=== PATIENT | female | born 1970 | race Caucasian/White ===

== ENCOUNTER 2018-06-26 16:57 | Outpatient (CLI) | payer OTHER | END 2018-06-26 20:24 | disposition home or self-care (01) | LOC: SRD 16:57 | PROVIDERS: ATTEND Internal Medicine | DX: M17.0 Bilateral primary osteoarthritis of knee (principal) ==

== ENCOUNTER 2018-06-29 08:45 | Outpatient (CLI) | payer OTHER ==
[2018-06-29 10:02] LABS: BILIRUBIN,URINE NEGATIVE (NEGATIVE); BLOOD, URINE NEGATIVE (NEGATIVE); CLARITY/URINE CLEAR (CLEAR); COLOR,URINE YELLOW (YELLOW); GLUCOSE,URINE NEGATIVE (NEGATIVE); KETONES,URINE NEGATIVE (NEGATIVE); LEUKOCYTE ESTERASE ,URINE 1+ (NEGATIVE); NITRITE, URINE NEGATIVE (NEGATIVE); PH,URINE 6.5 (5.0-8.0); PROTEIN URINE NEGATIVE (NEGATIVE); UROBILINOGEN,URINE 0.2 (0.2-1.0)
[2018-06-29 10:06] LABS: BASOPHILS # (AUTO) 0.1 K/uL (0.0-0.2); BASOPHILS % (AUTO) 1.6 % (0.0-2.0); EOSINOPHILS # (AUTO) 0.2 K/uL (0.0-0.4); EOSINOPHILS % (AUTO) 3.9 % (0.0-4.0); HEMATOCRIT 41.1 % (36-48); HEMOGLOBIN 13.8 g/dL (12.0-16.0); LYMPHOCYTES # (AUTO) 1.5 K/uL (1.0-5.5); MEAN CORPUSCULAR HEMOGLOBIN 31 pg (27-31); MEAN CORPUSCULAR HGB CONC 34 % (32-36); MEAN CORPUSCULAR VOLUME 91 fL (79.0-98.0); MONOCYTES # (AUTO) 0.3 K/uL (0.0-1.0); MONOCYTES % (AUTO) 7.1 % (1.7-9.3); NEUTROPHILS # (AUTO) 2.6 K/uL (1.8-7.7); NEUTROPHILS % (AUTO) 55.4 % (40.0-70.0); PLATELET COUNT (AUTO) 205 K/uL (130-430); RED BLOOD CELL COUNT(AUTO) 4.51 MIL/uL (4.2-6.2); RED CELL DISTRIBUTION WIDTH 12.1 % (9.0-15.0); WHITE BLOOD COUNT (AUTO) 4.7 K/uL (4.8-10.8)
[2018-06-29 10:33] LABS: ALBUMIN 3.9 g/dL (3.4-4.8); CALCIUM 9.3 mg/dL (8.4-11.0); CREATININE 0.62 mg/dL (0.55-1.30); POTASSIUM 3.7 mmol/L (3.5-5.1); THYROID STIMULATING HORMONE 1.25 uIu/mL (0.34-4.82); TOTAL BILIRUBIN 0.5 mg/dL (0.0-1.0); URIC ACID 2.6 mg/dL (2.4-7.0)
[2018-06-29 10:41] LABS: BACTERIA,URINE RARE /HPF (None Seen); MUCUS,URINE None Seen /LPF (None Seen); RBC,URINE 0-3 /HPF (0-3); WBC,URINE 0-3 /HPF (0-3)
[2018-06-29 11:04] LABS: ERYTHROCYTE SEDIMENTATION RATE 16 MM/HR (0-20)
[2018-06-30 06:07] LABS: HEMOGLOBIN A1C 4.8 % (4.8-5.6)
== END 2018-06-29 19:31 | disposition home or self-care (01) ==
LOC: EDBD → SUS 08:45
PROVIDERS: ATTEND Internal Medicine
DX: R10.9 Unspecified abdominal pain (principal)
CPT/HCPCS: 36415; 76700-TC; 80053; 80061; 81000-TC; 82306; 82607; 83036; 84443-TC; 84550-TC; 85025; 85651-TC

== ENCOUNTER 2018-11-16 08:23 | Outpatient (CLI) | payer OTHER | END 2018-11-16 21:19 | disposition home or self-care (01) | LOC: SRD 08:23 | PROVIDERS: ATTEND Orthopaedic Surgery | DX: M17.12 Unilateral primary osteoarthritis, left knee (principal) ==

== ENCOUNTER 2018-11-29 08:49 | Outpatient (CLI) | payer OTHER | END 2018-11-29 21:12 | disposition home or self-care (01) | LOC: SMA 08:49 | PROVIDERS: ATTEND Internal Medicine | DX: Z12.31 Encounter for screening mammogram for malignant neoplasm of breast (principal) | CPT/HCPCS: 76641; 77067 ==

== ENCOUNTER 2018-12-22 08:45 | Outpatient (CLI) | payer OTHER ==
[2018-12-22 09:26] LABS: BASOPHILS # (AUTO) 0.1 K/uL (0.0-0.2); BASOPHILS % (AUTO) 1.5 % (0.0-2.0); EOSINOPHILS # (AUTO) 0.1 K/uL (0.0-0.4); EOSINOPHILS % (AUTO) 2.8 % (0.0-4.0); HEMATOCRIT 39.6 % (36-48); HEMOGLOBIN 13.6 g/dL (12.0-16.0); LYMPHOCYTES # (AUTO) 1.3 K/uL (1.0-5.5); LYMPHOCYTES % (AUTO) 35.3 % (20.5-51.5); MEAN CORPUSCULAR HEMOGLOBIN 31 pg (27-31); MEAN CORPUSCULAR HGB CONC 35 % (32-36); MEAN CORPUSCULAR VOLUME 89 fL (79.0-98.0); MONOCYTES # (AUTO) 0.3 K/uL (0.0-1.0); MONOCYTES % (AUTO) 8.9 % (1.7-9.3); NEUTROPHILS # (AUTO) 1.9 K/uL (1.8-7.7); PLATELET COUNT (AUTO) 192 K/uL (130-430); RED BLOOD CELL COUNT(AUTO) 4.45 MIL/uL (4.2-6.2); WHITE BLOOD COUNT (AUTO) 3.7 K/uL (4.8-10.8)
[2018-12-22 09:29] LABS: ANION GAP 7 (5-15); CHLORIDE 106 mmol/L (98-107); GLUCOSE 95 mg/dL (70-99); POTASSIUM 4.4 mmol/L (3.5-5.1); SODIUM SERUM 142 mmol/L (136-145); UREA NITROGEN, BLOOD 16 mg/dL (8-21)
[2018-12-22 09:33] LABS: GFR AFRICAN AMERICAN 114 mL/min (>90)
[2018-12-22 09:44] LABS: ALANINE AMINOTRANSFERASE 21 U/L (12-78); ALBUMIN 3.7 g/dL (3.4-4.8); ASPARTATE AMINOTRANSFERASE 14 U/L (10-37); THYROID STIMULATING HORMONE 1.38 uIu/mL (0.36-3.74); TOTAL BILIRUBIN 0.5 mg/dL (0.0-1.0)
[2018-12-22 09:47] LABS: NEUTROPHILS % (AUTO) 51.5 % (40.0-70.0)
[2018-12-22 10:00] LABS: CHOLESTEROL 200 mg/dL (<200); HDL CHOLESTEROL 61 mg/dL (>55); LDL CHOLESTEROL 136 mg/dL (<100); TRIGLYCERIDES 65 mg/dL (30-150)
[2018-12-22 10:01] LABS: C-REACTIVE PROTEIN QUANT < 0.2 mg/dL (0-0.5)
[2018-12-22 10:43] LABS: ERYTHROCYTE SEDIMENTATION RATE 8 MM/HR (0-20)
[2018-12-23 07:03] LABS: HEMOGLOBIN A1C 4.9 % (4.8-5.6)
== END 2018-12-22 20:10 | disposition home or self-care (01) ==
LOC: SMI 08:45
PROVIDERS: ATTEND Internal Medicine
DX: M47.812 Spondylosis without myelopathy or radiculopathy, cervical region (principal); E04.1 Nontoxic single thyroid nodule; M46.02 Spinal enthesopathy, cervical region
CPT/HCPCS: 36415; 72141; 80053; 80061; 82306; 82607; 83036; 83735-TC; 84443-TC; 85025; 85651-TC; 86140

== ENCOUNTER 2019-01-05 08:11 | Outpatient (CLI) | payer OTHER | END 2019-01-05 20:04 | disposition home or self-care (01) | LOC: SUS 08:11 | PROVIDERS: ATTEND Internal Medicine | DX: E04.1 Nontoxic single thyroid nodule (principal) | CPT/HCPCS: 76536-TC ==

== ENCOUNTER 2020-06-06 08:19 | Outpatient (CLI) | payer OTHER ==
[2020-06-06 10:40] LABS: EOSINOPHILS # (AUTO) 0.2 K/uL (0.0-0.4); EOSINOPHILS % (AUTO) 3.3 % (0.0-4.0); HEMATOCRIT 40.6 % (36-48); HEMOGLOBIN 13.6 g/dL (12.0-16.0); LYMPHOCYTES # (AUTO) 1.8 K/uL (1.0-5.5); LYMPHOCYTES % (AUTO) 36.1 % (20.5-51.5); MEAN CORPUSCULAR HEMOGLOBIN 31 pg (27-31); MEAN CORPUSCULAR HGB CONC 34 % (32-36); MEAN CORPUSCULAR VOLUME 91 fL (79.0-98.0); MONOCYTES # (AUTO) 0.3 K/uL (0.0-1.0); MONOCYTES % (AUTO) 6.8 % (1.7-9.3); NEUTROPHILS # (AUTO) 2.7 K/uL (1.8-7.7); NEUTROPHILS % (AUTO) 52.8 % (40.0-70.0); PLATELET COUNT (AUTO) 202 K/uL (130-430); RED BLOOD CELL COUNT(AUTO) 4.46 MIL/uL (4.2-6.2)
[2020-06-06 11:21] LABS: ALBUMIN 4.3 g/dL (3.4-4.8); CALCIUM 9.3 mg/dL (8.4-11.0); CREATININE 0.83 mg/dL (0.55-1.30); FREE T4 (FREE THYROXINE) 0.7 ng/dL (0.6-1.6); POTASSIUM 3.7 mmol/L (3.5-5.1); THYROID STIMULATING HORMONE 1.56 uIu/mL (0.34-4.82); TOTAL BILIRUBIN 0.6 mg/dL (0.0-1.0)
[2020-06-06 11:36] LABS: ERYTHROCYTE SEDIMENTATION RATE 12 MM/HR (0-20)
[2020-06-07 02:06] LABS: HEMOGLOBIN A1C 5.1 % (4.8-5.6)
[2020-06-07 08:06] LABS: THYROID PEROXIDASE (TPO) AB <9 IU/mL (0-34)
== END 2020-06-06 19:46 | disposition home or self-care (01) ==
LOC: SMA 08:19
PROVIDERS: ATTEND Internal Medicine
DX: Z12.31 Encounter for screening mammogram for malignant neoplasm of breast (principal); E04.2 Nontoxic multinodular goiter; N60.02 Solitary cyst of left breast
CPT/HCPCS: 36415; 76536-TC; 76641; 77067; 80053; 80061; 82306; 82607; 83036; 84439; 84443-TC; 85025; 85651-TC; 86376

== ENCOUNTER 2020-11-17 07:02 | Day surgery (SDC) | payer OTHER, SELFPAY ==
[~2020-11-17] VITALS: Ht 167.6 cm; Wt 77.1 kg
[2020-11-17] MEDS ORDERED: SIMETHICONE 40 MG/0.6 ML ML ONE (07:11)
[2020-11-17] MEDS ORDERED: MEPERIDINE 100 MG INJ. 100 MG/ML VIAL ONE (07:12)
[2020-11-17] MEDS: MIDAZOLAM HCL 5 MG/5 ML VIAL ONE ×4 (09:10→09:17)
[2020-11-17 10:17] VITALS: BP_SYST 104
== END 2020-11-17 10:43 | disposition home or self-care (01) ==
LOC: SDS 07:02 → SMU 07:02 → SDS 10:43
PROVIDERS: ATTEND Internal Medicine Gastroenterology
DX: K62.5 Hemorrhage of anus and rectum (principal); K64.4 Residual hemorrhoidal skin tags; K57.30 Diverticulosis of large intestine without perforation or abscess without bleeding; Z20.828 Contact with and (suspected) exposure to other viral communicable diseases
CPT/HCPCS: 45378; 99152; G0378; J2175; J2250; U0003

== ENCOUNTER 2021-10-02 12:40 | Outpatient (CLI) | payer OTHER | END 2021-10-02 19:36 | disposition home or self-care (01) | LOC: SUS 12:40 | PROVIDERS: ATTEND Internal Medicine | DX: E04.2 Nontoxic multinodular goiter (principal) | CPT/HCPCS: 76536-TC ==